=== PATIENT | male | born 1990 | race Caucasian/White ===

== ENCOUNTER 2017-05-17 12:07 | Emergency (ER) | payer OTHER ==
[~2017-05-17] VITALS: Ht 180.3 cm; Wt 88.5 kg
== END 2017-05-17 15:15 | disposition home or self-care (01) ==
LOC: ER 12:07
DX: S61.217A Laceration without foreign body of left little finger without damage to nail, initial encounter (principal); S61.412A Laceration without foreign body of left hand, initial encounter; W26.8XXA Contact with other sharp object(s), not elsewhere classified, initial encounter; Y93.89 Activity, other specified; Y92.89 Other specified places as the place of occurrence of the external cause; Y99.8 Other external cause status